=== PATIENT | female | born 1955 | race Caucasian/White ===

== ENCOUNTER 2022-06-10 08:20 | Inpatient (IN) | payer BC ==
[~2022-06-10] VITALS: Ht 149.9 cm; Wt 52.2 kg
[2022-06-10] MEDS ORDERED: IV NORMAL SALINE 250 ML IV ONE (08:29)
[2022-06-10] MEDS ORDERED: IOHEXOL 350 100 ML INFUS..BTL ONE (08:29)
[2022-06-10] MEDS ORDERED: SWABABLE VALVE TRANSFER SET EA MC ONE (08:29)
[2022-06-10] MEDS ORDERED: IV NORMAL SALINE 1000 ML BAG IV ONE (08:30)
[2022-06-10] MEDS ORDERED: PANTOPRAZOLE SODIUM 40 MG VIAL IV ONE (08:30)
[2022-06-10] MEDS ORDERED: ROSU20TA2 PO (08:38)
[2022-06-10] MEDS ORDERED: AMLO10TA59 PO (08:38)
[2022-06-10 08:41] LABS: HEMATOCRIT 37.3 % (31.2-41.9); MEAN CORPUSCULAR HEMOGLOBIN 28.8 uug (24.7-32.8); MEAN CORPUSCULAR VOLUME 86.2 fL (75.5-95.3); PLATELET COUNT (AUTO) 242 K/uL (179-408)
[2022-06-10] MEDS ORDERED: PANTOPRAZOLE SODIUM 40 MG VIAL ONE (08:49)
[2022-06-10 08:51] LABS: CREATININE 0.7 mg/dL (0.6-1.3); POTASSIUM 3.5 mmol/L (3.5-5.1)
[2022-06-10] MEDS ORDERED: HYDROMORPHONE 1 MG/1 ML DISP.SYRIN ONE (08:53)
[2022-06-10] MEDS ORDERED: ONDANSETRON 4 MG/2 ML VIAL ONE ×2 (08:53→11:49)
[2022-06-10] MEDS ORDERED: ONDANSETRON 4 MG/2 ML VIAL IV ONE (09:00)
[2022-06-10] MEDS ORDERED: HYDROMORPHONE 1 MG/1 ML DISP.SYRIN IV ONE (09:00)
[2022-06-10] MEDS ORDERED: CEFTRIAXONE 1 G in IV DEXTROSE 5% 50 ML IV ONE (09:00)
[2022-06-10] MEDS ORDERED: METRONIDAZOLE 500 MG/NS 100 ML PIGGYBACK IV ONE (09:00)
[2022-06-10 09:02] LABS: BILIRUBIN,DIRECT 0.2 mg/dL (0.0-0.2); BILIRUBIN,TOTAL 0.4 mg/dL (0.2-1.0); TOTAL PROTEIN, SERUM 6.9 g/dL (6.4-8.2)
[2022-06-10] MEDS ORDERED: METOCLOPRAMIDE HCL 10 MG/2 ML VIAL ONE ×2 (09:07→11:49)
[2022-06-10 09:11] LABS: *BILIRUBIN,URIN NEGATIVE (NEGATIVE); *BLOOD, URINE NEGATIVE (NEGATIVE); *CLARITY,URINE CLEAR (CLEAR); *COLOR,URINE LIGHT YELLOW (YELLOW); *KETONES,URINE 1+ (NEGATIVE); *UROBILINOGEN,URINE 0.2 E.U./dl (NORMAL); LEUKOCYTE ESTERASE ,URINE NEGATIVE (NEGATIVE); NITRITE, URINE NEGATIVE (NEGATIVE); UGLUCOSE NEGATIVE (NEGATIVE)
[2022-06-10] MEDS ORDERED: CEFTRIAXONE /D5W 50ML IVPB **ER PYXIS IV ONE (09:12)
[2022-06-10] MEDS ORDERED: METOCLOPRAMIDE HCL 10 MG/2 ML VIAL IV ONE (09:15)
[2022-06-10] MEDS ORDERED: FENTANYL CITRATE 100 MCG/2 ML AMPUL ONE (09:32)
[2022-06-10] MEDS ORDERED: HYDROMORPHONE 2 MG/1 ML DISP.SYRIN ONE (09:33)
[2022-06-10] MEDS ORDERED: ROCURONIUM BROMIDE 50 MG/5 ML VIAL ONE (09:33)
[2022-06-10] MEDS ORDERED: MIDAZOLAM HCL 2 MG/2 ML VIAL ONE (09:33)
[2022-06-10] MEDS ORDERED: CLINDAMYCIN PHOSPHATE 600 MG/4 ML VIAL ONE (09:34)
[2022-06-10] MEDS ORDERED: BUPIVACAINE 0.25% 30 ML VIAL ONE (10:47)
[2022-06-10] MEDS ORDERED: IV D5W-0.45% NS +20 KCL 1,000 ML IV ONE (11:41)
[2022-06-10] MEDS ORDERED: MORPHINE SULFATE 2 MG/1 ML DISP.SYRIN IV PRN ×2 (11:45→14:45)
[2022-06-10] MEDS ORDERED: PROPOFOL 200 MG/20 ML BOTTLE ONE (11:49)
[2022-06-10] MEDS ORDERED: GLYCOPYRROLATE 0.2 MG/ML VIAL ONE (11:49)
[2022-06-10] MEDS ORDERED: NEOSTIGMINE METHYLSULFATE 10 MG/10 ML VIAL ONE (11:49)
[2022-06-10] MEDS ORDERED: LIDOCAINE-MPF 2% 5 ML VIAL ONE (11:49)
[2022-06-10] MEDS ORDERED: CIPROFLOXACIN IV 400 MG in PREMIXED 1 EACH IV SCH (12:00)
[2022-06-10] MEDS: IV D5W-0.45% NS +20 KCL 1,000 ML IV PRN (14:06)
[2022-06-10] MEDS: METOCLOPRAMIDE HCL 10 MG/2 ML VIAL IV SCH ×2 (14:08→20:15)
[2022-06-10 14:33] VITALS: BP 114/61
[2022-06-10] MEDS ORDERED: ACETAMINOPHEN 325 MG TABLET PO PRN (14:45)
[2022-06-10] MEDS ORDERED: REMEDY ESSENTIAL ZINC PASTE 113 GM TP PRN (14:45)
[2022-06-10] MEDS ORDERED: ONDANSETRON 4 MG/2 ML VIAL IV PRN (14:45)
[2022-06-10] MEDS ORDERED: MAGNESIUM HYDROXIDE 30 ML LIQUID UDC PO PRN (14:45)
[2022-06-10 16:00] VITALS: BP 121/68
[2022-06-10] MEDS: METRONIDAZOLE 500 MG/NS 100ML 500 MG in PREMIXED 1 EACH IV SCH (16:45)
[2022-06-10] MEDS: ATORVASTATIN 40 MG TABLET PO SCH (20:15)
[2022-06-10 20:35] VITALS: BP 111/64
[2022-06-10] MEDS ORDERED: ROSUVASTATIN CALCIUM PO SCH (21:00)
[2022-06-10] MEDS ORDERED: ZOLPIDEM 5 MG TABLET PO PRN (21:00)
[2022-06-10] MEDS: HYDROCODONE/APAP 5-325MG TABLET PO PRN (23:47)
[2022-06-11] MEDS ORDERED: CIPROFLOXACIN IV 400 MG in PREMIXED 1 EACH IV SCH ×2
[2022-06-11] MEDS: METOCLOPRAMIDE HCL 10 MG/2 ML VIAL IV SCH ×4 (02:05→22:25)
[2022-06-11] MEDS: METRONIDAZOLE 500 MG/NS 100ML 500 MG in PREMIXED 1 EACH IV SCH (02:05)
[2022-06-11] MEDS: IV D5W-0.45% NS +20 KCL 1,000 ML IV PRN ×2 (03:30→15:18)
[2022-06-11 04:30] VITALS: BP 144/74
[2022-06-11] MEDS: HYDROCODONE/APAP 5-325MG TABLET PO PRN (05:48)
[2022-06-11] MEDS: PANTOPRAZOLE SODIUM 40 MG TABLET.DR PO SCH (06:10)
[2022-06-11 07:20] LABS: HEMATOCRIT 38.1 % (31.2-41.9); MEAN CORPUSCULAR HEMOGLOBIN 28.5 uug (24.7-32.8); MEAN CORPUSCULAR VOLUME 84.6 fL (75.5-95.3); PLATELET COUNT (AUTO) 252 K/uL (179-408)
[2022-06-11 08:07] LABS: CREATININE 0.6 mg/dL (0.6-1.3); POTASSIUM 3.1 mmol/L (3.5-5.1)
[2022-06-11] MEDS ORDERED: POTASSIUM CHLORIDE 20 MEQ TAB.PRT.SR PO ONE (09:15)
[2022-06-11] MEDS: AMLODIPINE 10 MG TABLET PO SCH (10:20)
[2022-06-11] MEDS: ENOXAPARIN SODIUM 40 MG/0.4 ML DISP.SYRIN SQ SCH (13:50)
[2022-06-11 20:49] VITALS: BP 154/81
[2022-06-11] MEDS: ATORVASTATIN 40 MG TABLET PO SCH (20:57)
[2022-06-12] MEDS: IV D5W-0.45% NS +20 KCL 1,000 ML IV PRN (02:36)
[2022-06-12] MEDS: METOCLOPRAMIDE HCL 10 MG/2 ML VIAL IV SCH ×4 (03:00→21:00)
[2022-06-12 04:52] VITALS: BP 137/74
[2022-06-12] MEDS: PANTOPRAZOLE SODIUM 40 MG TABLET.DR PO SCH (06:07)
[2022-06-12 07:12] LABS: HEMATOCRIT 33.7 % (31.2-41.9); MEAN CORPUSCULAR HEMOGLOBIN 28.9 uug (24.7-32.8); PLATELET COUNT (AUTO) 235 K/uL (179-408)
[2022-06-12 08:00] LABS: CREATININE 0.8 mg/dL (0.6-1.3); MAGNESIUM 1.8 mg/dL (1.8-2.4)
[2022-06-12] MEDS: AMLODIPINE 10 MG TABLET PO SCH (08:52)
[2022-06-12] MEDS: ENOXAPARIN SODIUM 40 MG/0.4 ML DISP.SYRIN SQ SCH (09:05)
[2022-06-12] MEDS: POTASSIUM CHLORIDE 20 MEQ TAB.PRT.SR PO SCH ×3 (09:37→15:06)
[2022-06-12 12:09] VITALS: BP 133/64
[2022-06-12 12:39] LABS: HEMATOCRIT 33.3 % (31.2-41.9); MEAN CORPUSCULAR HEMOGLOBIN 28.7 uug (24.7-32.8); MEAN CORPUSCULAR VOLUME 84.2 fL (75.5-95.3); PLATELET COUNT (AUTO) 225 K/uL (179-408)
[2022-06-12] MEDS ORDERED: MIRALAX 17 GM POWD.PACK PO PRN (13:15)
[2022-06-12] MEDS: DOCUSATE SODIUM 100 MG CAPSULE PO SCH ×2 (13:43→21:00)
[2022-06-12 17:24] VITALS: BP 139/72
[2022-06-12] MEDS: ATORVASTATIN 40 MG TABLET PO SCH (21:00)
[2022-06-12 22:00] VITALS: BP 127/63
[2022-06-13] MEDS: IV D5W-0.45% NS +20 KCL 1,000 ML IV PRN ×3 (02:45→14:01)
[2022-06-13] MEDS: METOCLOPRAMIDE HCL 10 MG/2 ML VIAL IV SCH ×2 (03:00→08:41)
[2022-06-13 04:52] VITALS: BP 115/51
[2022-06-13] MEDS: PANTOPRAZOLE SODIUM 40 MG TABLET.DR PO SCH (06:30)
[2022-06-13 06:51] LABS: HEMATOCRIT 31.1 % (31.2-41.9); MEAN CORPUSCULAR VOLUME 83.3 fL (75.5-95.3); PLATELET COUNT (AUTO) 224 K/uL (179-408)
[2022-06-13 07:12] LABS: ALANINE AMINOTRANSFERASE 20 U/L (14-59); ALKALINE PHOSPHATASE 50 U/L (50-136); ASPARTATE AMINOTRANSFERASE 19 U/L (15-37); BILIRUBIN,DIRECT 0.1 mg/dL (0.0-0.2); BILIRUBIN,TOTAL 0.6 mg/dL (0.2-1.0); CARBON DIOXIDE 24 mmol/L (21-32); CHLORIDE 101 mmol/L (98-107); CREATININE 0.3 mg/dL (0.6-1.3); GLUCOSE 135 mg/dL (74-106); MAGNESIUM 1.9 mg/dL (1.8-2.4); POTASSIUM 3.3 mmol/L (3.5-5.1); TOTAL PROTEIN, SERUM 6.5 g/dL (6.4-8.2); UREA NITROGEN, BLOOD 7 mg/dL (7-18)
[2022-06-13] MEDS: DOCUSATE SODIUM 100 MG CAPSULE PO SCH ×2 (08:23→20:37)
[2022-06-13] MEDS: AMLODIPINE 10 MG TABLET PO SCH (08:23)
[2022-06-13] MEDS: ENOXAPARIN SODIUM 40 MG/0.4 ML DISP.SYRIN SQ SCH (08:24)
[2022-06-13] MEDS ORDERED: POTASSIUM CHLORIDE 10 MEQ TAB.PRT.SR PO ONE (09:45)
[2022-06-13 12:04] VITALS: BP 146/84
[2022-06-13] MEDS ORDERED: METOCLOPRAMIDE HCL 10 MG/2 ML VIAL IV PRN (14:00)
[2022-06-13 17:07] VITALS: BP 102/58
[2022-06-13 20:00] VITALS: BP 117/63
[2022-06-13] MEDS: ATORVASTATIN 40 MG TABLET PO SCH (20:37)
[2022-06-14] MEDS: IV D5W-0.45% NS +20 KCL 1,000 ML IV PRN (00:38)
[2022-06-14 04:00] VITALS: BP 133/78
[2022-06-14] MEDS: PANTOPRAZOLE SODIUM 40 MG TABLET.DR PO SCH (06:03)
[2022-06-14 06:48] LABS: HEMATOCRIT 36.5 % (31.2-41.9); MEAN CORPUSCULAR HEMOGLOBIN 28.1 uug (24.7-32.8); MEAN CORPUSCULAR VOLUME 84.4 fL (75.5-95.3); PLATELET COUNT (AUTO) 284 K/uL (179-408)
[2022-06-14 07:06] LABS: CREATININE 0.8 mg/dL (0.6-1.3); POTASSIUM 3.5 mmol/L (3.5-5.1)
[2022-06-14] MEDS: AMLODIPINE 10 MG TABLET PO SCH (08:03)
[2022-06-14] MEDS: DOCUSATE SODIUM 100 MG CAPSULE PO SCH ×2 (08:03→21:00)
[2022-06-14] MEDS: ENOXAPARIN SODIUM 40 MG/0.4 ML DISP.SYRIN SQ SCH (08:04)
[2022-06-14 12:18] VITALS: BP 115/60
[2022-06-14] MEDS ORDERED: PANT40TA49 PO (13:37)
[2022-06-14] MEDS ORDERED: DOCU-141 PO (13:37)
[2022-06-14] MEDS ORDERED: POLY17PO4 PO (13:37)
[2022-06-14 16:27] VITALS: BP 98/59
[2022-06-14 20:00] VITALS: BP 139/78
[2022-06-14] MEDS: ATORVASTATIN 40 MG TABLET PO SCH (21:00)
[2022-06-15 04:00] VITALS: BP 134/81
[2022-06-15] MEDS: PANTOPRAZOLE SODIUM 40 MG TABLET.DR PO SCH (06:13)
[2022-06-15 06:36] LABS: HEMATOCRIT 34.8 % (31.2-41.9); MEAN CORPUSCULAR HEMOGLOBIN 29.5 uug (24.7-32.8); MEAN CORPUSCULAR VOLUME 84.5 fL (75.5-95.3); PLATELET COUNT (AUTO) 301 K/uL (179-408)
[2022-06-15 06:54] LABS: CREATININE 0.7 mg/dL (0.6-1.3); PHOSPHOROUS 4.1 mg/dL (2.5-4.9); POTASSIUM 3.4 mmol/L (3.5-5.1)
[2022-06-15] MEDS ORDERED: POTASSIUM CHLORIDE 20 MEQ TAB.PRT.SR PO ONE (10:00)
[2022-06-15] MEDS: DOCUSATE SODIUM 100 MG CAPSULE PO SCH (11:06)
[2022-06-15] MEDS: ENOXAPARIN SODIUM 40 MG/0.4 ML DISP.SYRIN SQ SCH (11:06)
[2022-06-15] MEDS: AMLODIPINE 10 MG TABLET PO SCH (11:11)
[2022-06-15 11:56] VITALS: BP 152/74
== END 2022-06-15 13:00 | disposition home or self-care (01) | DRG 909 ==
LOC: ER 08:20 → MED 09:40 → MEDSURG3 13:53
PROVIDERS: ADMIT Nurse Practitioner Family; ATTEND Registered Nurse
PROC: 0DQN0ZZ Repair Sigmoid Colon, Open Approach (ICD-10-PCS; principal; 2022-06-10)
DX: K91.71 Accidental puncture and laceration of a digestive system organ or structure during a digestive system procedure (principal); Y83.8 Other surgical procedures as the cause of abnormal reaction of the patient, or of later complication, without mention of misadventure at the time of the procedure; Y73.0 Diagnostic and monitoring gastroenterology and urology devices associated with adverse incidents; Y92.530 Ambulatory surgery center as the place of occurrence of the external cause; E78.5 Hyperlipidemia, unspecified; F41.9 Anxiety disorder, unspecified; G89.29 Other chronic pain; I10 Essential (primary) hypertension; Z86.73 Personal history of transient ischemic attack (TIA), and cerebral infarction without residual deficits; K66.8 Other specified disorders of peritoneum; M81.0 Age-related osteoporosis without current pathological fracture; R48.0 Dyslexia and alexia
CPT/HCPCS: 36415; 71045; 83690; 83735; 84100; 85025; 93005; 97161; A4649; A4663; C9113; G0378; J0696; J0744; J1170; J1650; J2250; J2405; J2765; J3010; J3490; J7040; Q9967

== ENCOUNTER 2022-06-18 13:29 | Emergency (ER) | payer BC ==
[~2022-06-18] VITALS: Ht 149.9 cm; Wt 47.6 kg
[~2022-06-18 13:29] MED LIST: AMLO10TA59 PO; DOCU-141 PO; PANT40TA49 PO; POLY17PO4 PO; ROSU20TA2 PO
--- NOTE | 2022-06-18 14:15 | NUR ---
PT SEEN AND EVALUATED BY DR ANTOINE. INSTRUCTED TO FOLLOWUP WITH DR HENAO(SURGEON).
[2022-06-18 14:19] VITALS: BP 132/77
--- NOTE | 2022-06-18 14:19 | NUR ---
SURGICAL WOUND WITH BETTIE EVALUATED BY MD. EMPHASIZED FOLLOW UP WITH DR HENAO.
--- NOTE | 2022-06-18 14:25 | NUR ---
dcd instructions given to pt. who verbalized undertanding. intructed to follow with her PCP and surgeon who perform the procedure as recommended by .
== END 2022-06-18 14:33 | disposition home or self-care (01) ==
LOC: ER 13:32
DX: S36 Injury of intra-abdominal organs (principal); Y84.8 Other medical procedures as the cause of abnormal reaction of the patient, or of later complication, without mention of misadventure at the time of the procedure; Y73.3 Surgical instruments, materials and gastroenterology and urology devices (including sutures) associated with adverse incidents; E78.5 Hyperlipidemia, unspecified; G89.29 Other chronic pain; M54.50 Low back pain, unspecified; I10 Essential (primary) hypertension; F41.9 Anxiety disorder, unspecified
CPT/HCPCS: A4663